=== PATIENT | female | born 1950 | race Caucasian/White ===

== ENCOUNTER 2023-12-20 08:59 | Emergency (ER) | payer MEDICARE, BC, SELFPAY ==
[2023-12-20 09:03] VITALS: BP 201/77
--- NOTE | 2023-12-20 09:13 | EDRN ---
Dr. Bravo in room w/ pt at this time.
--- NOTE | 2023-12-20 09:14 | ED.GENMED ---
History of Present Illness
General
Chief Complaint: Eye Problems
Source: patient
Exam Limitations: none
Time Seen by Provider: 12/20/23 09:10
Travel History
Have you had any contact with someone who has COVID-19?: No
Do you have any symptoms of coronavirus? Fever > 100 degrees, chills, cough, shortness of breath, sore throat, loss of taste or smell, muscle aches, or headache?: No
History of Present Illness
History of Present Illness:
See MDM
Past History
Past History
ED Past Medical History: CAD, HTN, Hypercholesterolemia and Psychiatric
ED Past Surgical History: Cardiac and Cholecystectomy
Social History
Tobacco: Non-smoker
Alcohol: None
Drug: None
Living: alone
Phy Exam
Physical Exam
Physical Exam:
See MDM
Course
Vital Signs
Initial and Last Documented VS:
Initial Vital Signs
Temp Pulse Resp BP Pulse Ox
98.2 F 53 18 201/77 96
12/20/23 09:03 12/20/23 09:03 12/20/23 09:03 12/20/23 09:03 12/20/23 09:03
Last Documented Vital Signs
Temp Pulse Resp BP Pulse Ox
98.2 F 61 16 185/69 96
12/20/23 09:03 12/20/23 09:22 12/20/23 09:22 12/20/23 09:22 12/20/23 09:22
MDM/Problems Addressed
Differential Diagnosis Includes:
HPI and MDM Narrative:
73-year-old female presenting with left eye redness. Patient states she woke up and her left crusted shut. She does not think she has pinkeye. She has sensation of foreign body in her eye. She denies any blurry vision or pain with eye movement
On exam, patient has clinical signs of conjunctivitis. Will stain eye looking for any evidence of abrasion. There is no clinical evidence of glaucoma
Physical exam
General: Well appearing and non-toxic
HEENT: protecting airway. Left eye conjunctivitis. Pupils equal and reactive. EOMI. No visual field deficits
Neck: appears supple
CV: No evidence of cyanosis
Resp: No accessory muscle use
Abd: Non-distended
Extremities: No deformities
Neuro: alert
Psych: Normal affect
Skin: Intact
Problems Addressed including Acute and Chronic Conditions affecting care:
1. Conjunctivitis
Acuity: acute
Prognosis: stable
Details: Will stain eye looking for evidence of abrasion. Patient denies blurry vision. She has no visual field deficits
Updates
We discussed her elevated blood pressure and having this rechecked by PCP
No fluorescein uptake with staining. Will treat as conjunctivitis
Visual acuity 20/25 per nursing
Differential Diagnosis (but not limited to): Conjunctivitis, abrasion
Testing considered: Blood work
Drug therapy (if applicable): OTC meds, please see d/c instruction regarding Rx drugs
Amount and/or Complexity of Data Reviewed
Clinical info obtained from: Patient
External data reviewed: N/A
Labs I independently reviewed (but not limited to): N/A
Radiology: N/A
Pulse Ox: not hypoxic
EKG independently reviewed: N/A
Bond Runner: N/A
Critical Care: N/A
Risk of Complication:
Social Determinants of health: Good social support
Discussed with other providers: N/A
Escalation of Care includes Admit/Obs: After being observed in the Emergency Department, pt stable for discharge.
Occasional wrong word or 'sound a like' substitutions may have occurred due to the inherent limitations of voice recognition software. Read the chart carefully and recognize, using context, where substitutions have occurred.
*Critical Care Note
Total Time (30-74mins, 75-104mins- exclusive of procedures): Not Applicable
ED Attending Note
-
Portions of this chart may have been created with voice recognition software.� Occasional wrong word or��sound alike� substitutions may have occurred due to the inherent limitations of voice recognition software.
Discharge Plan
Departure
Patient Disposition: Home (Routine Discharge)
Date of Disposition: 12/20/23
Time of Disposition: 09:39
Patient with high blood pressure during this ER visit?: Yes
Discharge Problem:
Acute bacterial conjunctivitis
Instructions: Conjunctivitis (Pinkeye) (DC), BLOOD PRESSURE
Prescriptions:
New
polymyxin B sulf-trimethoprim 10,000 unit- 1 mg/mL drops
2 drp ophthalmic (eye) QID 7 Days Qty: 10 0RF
No Action
multivitamin [Daily Multiple] 1 EACH tablet
1 ea PO DAILY
bisoprolol-hydrochlorothiazide [Ziac] 1 EACH tablet
1 tab PO QPM
ranitidine HCl [Zantac] 150 MG tablet
150 mg PO DAILY
fluticasone propionate 1 SPRAY spray,suspension
1 spray intranasal DAILY
diazepam 5 MG tablet
5 mg PO PRN PRN (Reason: anxiety)
escitalopram oxalate 10 MG tablet
10 mg PO QPM
rosuvastatin 20 MG tablet
20 mg PO QPM
icosapent ethyl [Vascepa] 1 GM capsule
2 gm PO BID
aspirin 81 MG tablet,chewable
81 mg PO DAILY 0RF
clopidogrel 75 MG tablet
75 mg PO DAILY Qty: 30 11RF
fexofenadine [Christine] 30 MG tablet
30 mg PO PRN PRN (Reason: seasonal allergy)
oxycodone-acetaminophen 5 MG/325 MG tablet
1 tab PO Q4HPRN PRN (Reason: pain) Qty: 17 0RF
tamsulosin 0.4 MG capsule
0.4 mg PO DAILY Qty: 7 0RF
ondansetron 4 MG tablet,disintegrating
4 mg PO TIDPRN PRN (Reason: nausea/vomiting) Qty: 7 0RF
prednisone 10 mg Tablet
See Rx Instructions .ROUTE .COMPLEX Qty: 30 0RF
Rx Instructions:
Take By Mouth:
40 mg daily x3 days, 30 mg daily x3 days,
20 mg daily x3 days, 10 mg daily x3 days.
Referrals:
Tiago Aguilar DO [Family Provider] -
Activity Restrictions/Additional Instructions:
Please return for any worsening symptoms.
You may return at any time if you have further concerns.
Please follow up with your doctor at the first available appointment, preferably this week.
Thank you for choosing [facility].
Interventions
Interventions:
*Risk Screen - Suicide Last Done: 12/20/23 09:03
*General Assessment Last Done: 12/20/23 09:03
*Neglect/Abuse Screening Last Done: 12/20/23 09:03
ED- Fall Risk Assessment Last Done: 12/20/23 09:22
*ED COVID-19 Vaccine History Last Done: 12/20/23 09:03
[2023-12-20 09:22] VITALS: BP 185/69
--- NOTE | 2023-12-20 09:37 | EDRN ---
Dr. Bravo in to see pt.
[2023-12-20 09:45] VITALS: BP 174/72
== END 2023-12-20 09:50 | disposition home or self-care (01) ==
LOC: EMR 08:59
PROVIDERS: EMERGENCY PHYSICIAN Student in an Organized Health Care Education/Training Program; FAMILY PHYSICIAN Family Medicine
DX: H10.33 Unspecified acute conjunctivitis, bilateral (principal); I10 Essential (primary) hypertension
CPT/HCPCS: 99283

== ENCOUNTER → 2024-04-08 09:51 | Outpatient (REF) | payer MEDICARE, BC, SELFPAY | LOC: HWRCS 09:51 | PROVIDERS: ATTENDING PHYSICIAN Internal Medicine Cardiovascular Disease; FAMILY PHYSICIAN Family Medicine | DX: I34.0 Nonrheumatic mitral (valve) insufficiency (principal) | CPT/HCPCS: 93306 ==

== ENCOUNTER → 2025-01-04 12:19 | Outpatient (REF) | payer MEDICARE, BC, SELFPAY | LOC: HWWDC 12:19 | PROVIDERS: ATTENDING PHYSICIAN Family Medicine | DX: Z12.31 Encounter for screening mammogram for malignant neoplasm of breast (principal) | CPT/HCPCS: 77063; 77067 ==